=== PATIENT | male | born 2000 | race Caucasian/White ===

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

== ENCOUNTER 2018-06-21 19:01 | Emergency (ER) | payer OTHER ==
--- NOTE | 2018-06-21 20:11 | EDPHY ---
H & P Stated Complaint: left ring finger lac Time Seen by Provider: 06/21/18 19:28 HPI/ROS: Chief complaint: Finger laceration History of present illness: This is a 17-year-old male who presents to the emergency department for evaluation of a finger laceration. Injury occurred approximately 1 hr prior to arrival. He was using a butter knife when it slipped and cut the finger. Bleeding has been controlled with a dressing. He is still moving the finger well. No report of abnormal coolness or paresthesias in the finger. His tetanus is up-to-date. - Personal History Current Tetanus/Diphtheria Vaccine: Yes Current Tetanus Diphtheria and Acellular Pertussis (TDAP): Yes - Medical/Surgical History Hx Asthma: No Hx Chronic Respiratory Disease: No Hx Diabetes: No Hx Cardiac Disease: No Hx Renal Disease: No Hx Cirrhosis: No Hx Alcoholism: No Hx HIV/AIDS: No Hx Splenectomy or Spleen Trauma: No Other PMH: right hand fx - Social History Smoking Status: Current every day smoker - Physical Exam Exam: General: Alert, mildly anxious. Skin: Patient has a 1 cm laceration to the proximal left 4th digit on the posterolateral aspect. Examination does not reveal deep structure or foreign body contamination. Musculoskeletal: Patient has good flexion and extension with strength in the MCP, PIP and the DIP joint. Vascular: Capillary refill is brisk in the left 4th finger. Neurologic: Sensation is intact in the finger using light touch and two-point discrimination. Constitutional: Initial Vital Signs Temperature (C) 37.5 C 06/21/18 19:09 Heart Rate 109 H 06/21/18 19:09 Respiratory Rate 16 06/21/18 19:09 Blood Pressure 126/87 H 06/21/18 19:09 O2 Sat (%) 93 06/21/18 19:09 O2 Delivery Mode Room Air Allergies/Adverse Reactions: No Known Allergies Allergy (Verified 06/21/18 19:13) Home Medications: Medication Instructions Recorded NK [No Known Home Meds] 06/21/18 Medical Decision Making Procedures: Procedure: Laceration repair. Verbal consent was obtained from the patient. The 1 cm laceration on the left ring finger was anesthetized in the usual fashion. The wound was irrigated, draped and explored to its base with a gloved finger. There were no deep structures involved. No tendon injury was identified. The wound was repaired with 5 0 Prolene, 3 simple interrupted sutures. The wound repair was simple. The procedure was performed by myself. ED Course/Re-evaluation: Patient is seen under the supervision of my secondary supervising physician Dr. Chacorta Murphy. Patient presents for finger laceration. The finger appears neurovascularly intact. He has good musculoskeletal control. His tetanus is already up-to-date. Wound is cleaned, anesthetized and repaired. He is discharged home. He is to follow up with a primary care doctor for recheck. Return precautions were discussed. Patient voiced understanding and agreement with plan. Differential Diagnosis: Included but not limited to laceration, deep structure injury, foreign body contamination Departure - Departure Disposition: Home, Routine, Self-Care Clinical Impression: Finger laceration Qualifiers: Encounter type: initial encounter Finger: ring finger Damage to nail status: without damage Foreign body presence: without foreign body Laterality: left Qualified Code(s): S61.215A - Laceration without foreign body of left ring finger without damage to nail, initial encounter Condition: Good Instructions: Finger Laceration (ED), Acute Wounds (ED) Additional Instructions: Follow-up with a primary care doctor or hand doctor this week for recheck Stitches to be removed in 7-10 days If symptoms worsen or new symptoms develop return to the emergency room for recheck Referrals: NONE *PRIMARY CARE P,. [Primary Care Provider] - As per Instructions Tal Kinsey MD [Medical Doctor] - As per Instructions [facility],. [Clinic] - As per Instructions
[2018-06-21 20:29] VITALS: BP 142/85
== END 2018-06-21 20:30 | disposition home or self-care (01) ==
PROC: 0HQGXZZ Repair Left Hand Skin, External Approach (ICD-10-PCS; principal; 2018-06-21)
DX: S61.215A Laceration without foreign body of left ring finger without damage to nail, initial encounter (principal); F17.200 Nicotine dependence, unspecified, uncomplicated; W26.0XXA Contact with knife, initial encounter; Y92.9 Unspecified place or not applicable; Y93.9 Activity, unspecified; Y99.9 Unspecified external cause status

== ENCOUNTER 2018-11-17 00:24 | Emergency (ER) | payer OTHER ==
[2018-11-17 00:33] VITALS: BP 134/87
--- NOTE | 2018-11-17 01:04 | EDPHY ---
General - History Smoking Status: Current every day smoker Time Seen by Provider: 11/17/18 00:46 Narrative: PHYSICIAN DOCUMENTATION: The patient was evaluated and managed by the Physician Auctioneer Art. My co- signature indicates that I have reviewed this chart and I agree with the findings and plan of care as documented. I am the secondary supervising physician. (Amy Crowley) CLINICAL IMPRESSION: Bronchitis ASSESSMENT/PLAN: 18-year-old male presents to the emergency department with 5 weeks of productive cough and intermittent shortness of breath. Patient is otherwise healthy. He does smoke marijuana and vapors. Vital signs are stable, no hypoxia, tachycardia or respiratory distress. No chest pain or pleuritic discomfort. No asymmetric leg swelling to suggest DVT. He is congested with purulent discharge down the posterior pharyngeal wall suggestive of possible sinus infection. Lungs are clear to auscultation bilaterally Given the duration of his symptoms he was given a prescription for an antibiotic and encouraged to follow up with the [facility]. Patient is nontoxic and nonseptic appearing and able to ambulate out of the ER without perceived difficulty or respiratory distress. Warning signs for return to ED sooner outlined and discharge. DIFFERENTIAL DX: Differential includes but not limited to bronchitis, sinusitis, viral URI, reactive airway disease CHIEF COMPLAINT: Cough x5 weeks HPI: 18-year-old [employer] ([place], [place]) student who smokes marijuana and vapors, presents to the emergency department with 5 weeks of cough reportedly getting worse with increased production of purulent mucus. He also reports nasal congestion and mild facial discomfort. No associated fever, chills, chest pain , asymmetric leg swelling, recent travel or other risk factors for PE DVT. No personal history of PE or DVT. Patient reports he read online that he might have pneumonia and he was concerned about this. He does not take regular inhalers nor does he report prior pulmonary disease. PAST MEDICAL HISTORY: None reported See triage summary and nurse notes for addition applicable history Pertinent Past Surgical History: None reported Family History: Noncontributory Social History: Smokes marijuana and vapes REVIEW OF SYSTEMS: A full 10 point review of systems was negative except for those mentioned in HPI. PHYSICAL EXAM: General Appearance: Alert, oriented, appropriate, cooperative, NAD, well hydrated, non-toxic appearing, VSS, no hypoxia. HEENT: TMs are clear bilaterally no perforation or FB, no injection, no evidence of serous or mucopurulent otitis. Oropharynx clear is no erythema or exudates, no tonsillar hypertrophy or asymmetry. Dentition without abnormality. Eyes: PERRLA, no acute vision change, nystagmus, swelling, discharge, pain or photosensitivity. Conjunctiva pink, no pallor or injection Neck: Supple, nontender, no lymphadenopathy, no midline pain, FROM, no meningismus. Respiratory: There are no retractions, lungs are clear to auscultation. Cardiac: Regular rate and rhythm, no murmurs or gallops. Skin: Warm, dry, no rashes, no nodules on palpation. MEDICAL DECISION MAKING: Patient was seen independently. Secondary supervising physician at time of evaluation was: Dr. Crowley . Diagnosis: Bronchitis. New, requires workup Summary: See Assessment and Plan for summary of ED visit Patient Progress: Stable for discharge. (Richard Knutson) - Objective Vital Signs: Initial Vital Signs Temperature (C) 37.1 C 11/17/18 00:30 Heart Rate 120 H 11/17/18 00:30 Respiratory Rate 158 H 11/17/18 00:30 Blood Pressure 134/87 H 11/17/18 00:30 O2 Sat (%) 97 11/17/18 00:30 O2 Delivery Mode Room Air Allergies/Adverse Reactions: No Known Allergies Allergy (Verified 11/17/18 00:33) Home Medications: Medication Instructions Recorded Azithromycin 250 mg PO DAILY #6 tablet 11/17/18 Departure - Departure Disposition: Home, Routine, Self-Care Clinical Impression: Bronchitis Condition: Good Instructions: Acute Bronchitis (ED) Additional Instructions: DISCHARGE INSTRUCTIONS FROM YOUR DOCTOR Thank you for visiting our emergency department today. You were treated by a physician medical receptionist assistant today and your case was reviewed with our ED Attending physician. Please keep in mind that discharge from the emergency department does not mean that there is nothing wrong - it simply means that we have not identified an emergency condition that requires further evaluation or treatment in the hospital. You should always plan to follow up with primary care for re- evaluation of your condition in the next 2-3 days. If you have been referred to a specialist, please call as soon as possible (today or tomorrow) to schedule your follow up appointment at the appropriate time. YOU ARE BEING TREATED WITH AN ANTIBIOTIC. PLEASE SEE [facility] FOR FOLLOW-UP. STOP VAPING AND SMOKING THIS WILL EXACERBATE YOUR COUGH. RETURN TO THE EMERGENCY DEPARTMENT FOR WORSENING COUGH, SHORTNESS OF BREATH, CHEST PAIN, FEVER GREATER THAN 100.4, ANY OTHER CONCERNS. People present with illnesses and injuries in different ways, and it is always possible that we have missed something. You may always return for re-evaluation if symptoms worsen or if they are not improving or if you develop new/different symptoms. Again, thank you for choosing our emergency department. We hope that you feel better. Referrals: NONE *PRIMARY CARE P,. [Primary Care Provider] - As per Instructions [facility] [Cl[facility]] - 1-2 days without fail Prescriptions: Azithromycin 250 mg PO DAILY #6 tablet
== END 2018-11-17 01:13 | disposition home or self-care (01) ==
DX: J40 Bronchitis, not specified as acute or chronic (principal)